=== PATIENT | female | born 1995 | race Caucasian/White ===

== ENCOUNTER 2020-02-22 11:09 | Outpatient (CLI) | payer OTHER, SELFPAY ==
[2020-02-22 12:50] LABS: Hematocrit 34.4 % (37.0-47.0); Hemoglobin 11.2 g/dL (12.0-15.0)
[2020-02-22 13:03] LABS: Alanine Aminotransferase 19 U/L (4-35); Albumin Level 3.7 g/dL (3.5-5.1); Alkaline Phosphatase 124 U/L (38-126); Aspartate Amino Transferase 19 U/L (14-36); Bilirubin,Total 0.2 mg/dL (0.2-1.3); Blood Urea Nitrogen 5 mg/dL (7-17); Calcium 8.9 mg/dL (8.4-10.2); Carbon Dioxide 21 mmol/L (22-30); Chloride 106 mmol/L (98-107); Estimated Glomerular Filt Rate > 60; Glucose 96 mg/dL (65-105); Glucose 1 Hour PP 50gm Dose 96 mg/dL; Potassium 3.7 mmol/L (3.4-5.0); Sodium 133 mmol/L (137-145)
[2020-02-22 13:43] LABS: HIV 1/2 Ab P24 Ag Result Negative (Negative)
--- NOTE | 2020-04-11 12:02 | PC.NURSE ---
1045 Let patient go home after BPP (ONLY) 06/14...called office to verify no NST.
== END 2020-02-22 11:10 | disposition home or self-care (01) ==
PROVIDERS: PCP Emergency Medicine; Visit Provider Obstetrics & Gynecology
DX: O13.9 Gestational [pregnancy-induced] hypertension without significant proteinuria, unspecified trimester (principal); Z3A.00 Weeks of gestation of pregnancy not specified
CPT/HCPCS: 36415; 76819; 80053; 82947; 85014; 85018; 86703; G0432

== ENCOUNTER 2020-04-16 10:08 | Outpatient (RCR) | payer OTHER, SELFPAY ==
[2020-03-21 13:08] VITALS: BP 126/67; PULSE 86
[2020-03-25 14:20] VITALS: BP 133/65; PULSE 89
[2020-03-28 09:10] VITALS: BP 127/83; PULSE 92
[2020-04-04 12:18] VITALS: BP 137/72; PULSE 90
[2020-04-08 10:40] VITALS: BP 127/69; PULSE 83
[2020-04-14 11:01] VITALS: BP 139/82; PULSE 140
--- NOTE | ~2020-04-16 | US_ITS ---
CORRECTED REPORT Charges & report moved from [id number] to [id number]. 04/15/20 sef EXAMINATION: US OB BPP wo non-stress DATE: 04/11/2020 11:09 INDICATION: Gestational hypertension. Third trimester. TECHNIQUE: Real-time pelvic ultrasound was performed. COMPARISON: Ultrasound 04/04/2020 FINDINGS: There is a single living fetus in vertex presentation. The placenta is anterior. heart rate is 154 beats per minute (bpm). Biophysical profile performed by the technologist: breathing (30 sec sustained breathing in 30 minutes): 2 out of 2 movement (3 gross body movements in 30 minutes): 2 out of 2 tone (one episode of udbihcm-xblfsjheu-pajwzdn limb movement): 2 out of 2 Amniotic fluid pocket (2 cm): 2 out of 2 Total score: 8 out of 8 IMPRESSION: 1. Single living fetus in vertex presentation. 2. Biophysical profile 8 out of 8. Reviewed, dictated and finalized at location A. REJI
--- NOTE | ~2020-04-16 | US_ITS ---
EXAMINATION: US OB BPP wo non-stress DATE: 03/28/2020 09:02 INDICATION: Gestational hypertension TECHNIQUE: Real-time pelvic ultrasound was performed. The interpreting radiologist was not present fo r the study. COMPARISON: 03/21/2020 FINDINGS: There is a single living fetus in vertex presentation. The placenta is anterior. heart rate is 139 beats per minute (bpm). Biophysical profile performed by the technologist: breathing (30 sec sustained breathing in 30 minutes): 2 out of 2 movement (3 gross body movements in 30 minutes): 2 out of 2 tone (one episode of gollczg-iaixldxwx-meddgkq limb movement): 2 out of 2 Amniotic fluid pocket (2 cm): 2 out of 2 Total score: 8 out of 8 IMPRESSION: 1. Single living fetus in vertex presentation with heart rate of 139 bpm. 2. Biophysical profile 8 out of 8. Reviewed, dictated and finalized at location A.
--- NOTE | ~2020-04-16 | US_ITS ---
EXAMINATION: US OB limited w BPP DATE: 03/21/2020 13:01 INDICATION: Hypertension in . Third trimester. TECHNIQUE: Real-time pelvic ultrasound was performed. COMPARISON: Ultrasound 04/10/2019 FINDINGS: There is a single living fetus in vertex presentation. The placenta is anterior. heart rate is 146 beats per minute (bpm). The amniotic fluid index is 16.5 cm, which is normal. Biophysical profile performed by the technologist: breathing (30 sec sustained breathing in 30 minutes): 2 out of 2 movement (3 gross body movements in 30 minutes): 2 out of 2 tone (one episode of gxcrvkr-qiuccdqia-jfvwfwt limb movement): 2 out of 2 Amniotic fluid pocket (2 cm): 2 out of 2 Total score: 8 out of 8 IMPRESSION: 1. Single living fetus in vertex presentation. 2. Biophysical profile 8 out of 8. Reviewed, dictated and finalized at location A.
--- NOTE | ~2020-04-16 | US_ITS ---
EXAMINATION: US OB BPP wo non-stress DATE: 04/04/2020 13:05 INDICATION: Gestational hypertension. Third trimester. TECHNIQUE: Real-time pelvic ultrasound was performed. COMPARISON: Ultrasound 03/28/2020 FINDINGS: There is a single living fetus in vertex presentation. The placenta is anterior. heart rate is 157 beats per minute (bpm). Biophysical profile performed by the technologist: breathing (30 sec sustained breathing in 30 minutes): 2 out of 2 movement (3 gross body movements in 30 minutes): 2 out of 2 tone (one episode of skjjccx-blawlqiax-kinqnro limb movement): 2 out of 2 Amniotic fluid pocket (2 cm): 2 out of 2 Total score: 8 out of 8 IMPRESSION: 1. Single living fetus in vertex presentation. 2. Biophysical profile 8 out of 8. Reviewed, dictated and finalized at location A.
[2020-04-16 10:45] LABS: Basophils Percent Auto 0.3 % (0.2-1.2); Eosinophils Absolute Auto 0.2 K/mm3 (0-0.3); Eosinophils Percent Auto 1.9 % (0-4.4); Hematocrit 31.7 % (37.0-47.0); Hemoglobin 10.4 g/dL (12.0-15.0); Immature Granulocyte Absolute 0.06 K/mm3 (0.00-0.031); Immature Granulocyte Percent A 0.8 % (0-0.5); Lymphocytes Absolute Auto 1.32 K/mm3 (0.9-3.2); Lymphocytes Percent Auto 16.6 % (18.3-44.2); Mean Corpuscular HGB Conc 32.8 g/dl (32-36); Mean Corpuscular Hemoglobin 27.2 pg (26-34); Mean Corpuscular Volume 82.8 fl (80-100); Mean Platelet Volume 11.5 fl (7.4-10.4); Monocytes Absolute Auto 0.5 K/mm3 (0.1-0.6); Monocytes Percent Auto 6.1 % (2.6-8.5); Neutrophils Absolute Auto 5.9 K/mm3 (1.3-6.7); Neutrophils Percent Auto 74.3 % (45.5-73.1); Platelet Count Result 185 k/mm3 (150-375); Red Blood Count 3.83 M/mm3 (4.2-5.4); Red Cell Distribution Width 13.7 % (11.5-14.5); White Blood Count 7.9 K/mm3 (4.5-10.0)
[2020-04-16 10:56] LABS: Alanine Aminotransferase 23 U/L (4-35); Albumin Level 3.6 g/dL (3.5-5.1); Alkaline Phosphatase 148 U/L (38-126); Aspartate Amino Transferase 21 U/L (14-36); Bilirubin,Total 0.2 mg/dL (0.2-1.3); Blood Urea Nitrogen 6 mg/dL (7-17); Calcium 8.7 mg/dL (8.4-10.2); Carbon Dioxide 23 mmol/L (22-30); Chloride 105 mmol/L (98-107); Estimated Glomerular Filt Rate > 60; Glucose 85 mg/dL (65-105); Potassium 3.8 mmol/L (3.4-5.0); Sodium 135 mmol/L (137-145); Uric Acid 3.7 mg/dL (2.5-7.5)
[2020-04-16 11:20] VITALS: BP 123/73; PULSE 90
== END 2020-04-21 08:13 | disposition home or self-care (01) ==
LOC: ANHOBOP 10:08
PROVIDERS: PCP Emergency Medicine; Visit Provider Obstetrics & Gynecology
DX: O16.3 Unspecified maternal hypertension, third trimester (principal); Z3A.34 34 weeks gestation of pregnancy; Z3A.35 35 weeks gestation of pregnancy; Z3A.36 36 weeks gestation of pregnancy; Z3A.37 37 weeks gestation of pregnancy; Z3A.38 38 weeks gestation of pregnancy
CPT/HCPCS: 36415; 59025; 76815; 76819; 80053; 84550; 85025

== ENCOUNTER 2020-04-17 19:00 | Inpatient (IN) | payer OTHER, SELFPAY ==
[2020-04-17] VITALS (10 sets, daily range): BP systolic 109–161; BP diastolic 55–90; PULSE 84–99; TEMP 36.6
--- NOTE | 2020-04-17 19:56 | LDADM ---
This patient, Patti Garcia, was admitted to Labor/Delivery/Recovery 109 on 04/17/20 at 19:00. Plans for labor, pain management and were discussed with patient. Patient/family oriented to hospital policies and general routines including ID bracelet, bed and alarms, visiting hours, pain management, procedures, bathroom and other care routines, personal items, smoking policy, room service/diet and guest tray routines, infant security routines, and visiting hours. Patient/Family are encouraged to report perceived risks to care and to ask questions if they do not understand what they are told or what they should do. See OBIX for further documentation.
[2020-04-17 19:57] LABS: Basophils Percent Auto 0.2 % (0.2-1.2); Eosinophils Absolute Auto 0.1 K/mm3 (0-0.3); Eosinophils Percent Auto 1.5 % (0-4.4); Hematocrit 32.4 % (37.0-47.0); Hemoglobin 10.5 g/dL (12.0-15.0); Immature Granulocyte Absolute 0.08 K/mm3 (0.00-0.031); Immature Granulocyte Percent A 0.9 % (0-0.5); Lymphocytes Absolute Auto 1.62 K/mm3 (0.9-3.2); Lymphocytes Percent Auto 18.7 % (18.3-44.2); Mean Corpuscular HGB Conc 32.4 g/dl (32-36); Mean Corpuscular Volume 83.3 fl (80-100); Monocytes Absolute Auto 0.5 K/mm3 (0.1-0.6); Monocytes Percent Auto 6.1 % (2.6-8.5); Neutrophils Absolute Auto 6.3 K/mm3 (1.3-6.7); Neutrophils Percent Auto 72.6 % (45.5-73.1); Platelet Count Result 210 k/mm3 (150-375); Red Blood Count 3.89 M/mm3 (4.2-5.4); Red Cell Distribution Width 13.8 % (11.5-14.5); White Blood Count 8.7 K/mm3 (4.5-10.0)
[2020-04-17] MEDS: DINOPROSTONE 10 MG VAG INSERT VAGINAL (19:58)
[2020-04-17 20:09] LABS: Alanine Aminotransferase 23 U/L (4-35); Albumin Level 3.7 g/dL (3.5-5.1); Alkaline Phosphatase 151 U/L (38-126); Aspartate Amino Transferase 22 U/L (14-36); Bilirubin,Total < 0.1 mg/dL (0.2-1.3); Blood Urea Nitrogen 10 mg/dL (7-17); Calcium 8.9 mg/dL (8.4-10.2); Carbon Dioxide 21 mmol/L (22-30); Chloride 107 mmol/L (98-107); Estimated Glomerular Filt Rate > 60; Glucose 102 mg/dL (65-105); Potassium 3.5 mmol/L (3.4-5.0); Sodium 132 mmol/L (137-145); Uric Acid 4.2 mg/dL (2.5-7.5)
[2020-04-18] VITALS (133 sets, daily range): BP systolic 74–138; BP diastolic 42–88; PULSE 69–111; RESP 16; TEMP 36.2–36.9; O2SAT 98–100
[2020-04-18] MEDS: LACTATED RINGERS 1,000 ML 125 ML IV CONT ×2 (05:22→06:49)
[2020-04-18] MEDS: OXYTOCIN 30 UNITS/NS 500 ML 30 UNITS/500 ML BAG IV CONT (05:23)
--- NOTE | 2020-04-18 08:07 | WPDANESEPPF ---
Anes - Initial Pre Proc Eval Date/Time: 04/18/20 08:07 Surgeon: Garret Kelley MD Pre Op Diagnosis: IOL Patient Data Age: 25 Gender: F Height: 5 ft 9 in Weight: Last Vital Signs Temp 36.6 C 04/18/20 06:30 Pulse 100 04/18/20 08:06 BP 113/42 L 04/18/20 08:06 Pulse Ox 100 04/18/20 08:05 Allergies Allergy/AdvReac Type Severity Reaction Status Date / Time No Known Allergies Allergy Verified 03/21/20 11:37 Home Medications Medication Instructions Recorded Confirmed Type PNV cmb#95-ferrous fumarate-FA 1 tablet PO DAILY 03/21/20 04/18/20 History [] aspirin [Aspirin Low Dose] 81 mg PO DAILY 03/21/20 04/18/20 History folic acid 1 mg PO DAILY 03/21/20 04/18/20 History Laboratory Tests 04/17/20 04/17/20 04/17/20 19:49 19:49 19:49 WBC 8.7 K/mm3 K/mm3 (4.5-10.0) RBC 3.89 M/mm3 L M/mm3 (4.2-5.4) Hgb 10.5 g/dL L g/dL (12.0-15.0) Hct 32.4 % L % (37.0-47.0) MCV 83.3 fl fl (80-100) MCH 27.0 pg pg (26-34) MCHC 32.4 g/dl g/dl (32-36) RDW 13.8 % % (11.5-14.5) Plt Count 210 k/mm3 k/mm3 (150-375) MPV 12.0 fl H fl (7.4-10.4) Immature Gran % (Auto) 0.9 % H % (0-0.5) Neut % (Auto) 72.6 % % (45.5-73.1) Lymph % (Auto) 18.7 % % (18.3-44.2) Camp % (Auto) 6.1 % % (2.6-8.5) Eos % (Auto) 1.5 % % (0-4.4) Baso % (Auto) 0.2 % % (0.2-1.2) Lymph # (Auto) 1.62 K/mm3 K/mm3 (0.9-3.2) Camp # (Auto) 0.5 K/mm3 K/mm3 (0.1-0.6) Eos # (Auto) 0.1 K/mm3 K/mm3 (0-0.3) Baso # (Auto) 0.0 K/mm3 K/mm3 (0.0-0.1) Abs Immat Gran (auto) 0.08 K/mm3 H K/mm3 (0.00-0.031) Absolute Neuts (auto) 6.3 K/mm3 K/mm3 (1.3-6.7) Absolute Nucleated RBC 0.0 K/mm3 K/mm3 (0.0-0.012) Nucleated RBC % 0.0 % % (0.0-0.2) Sodium Potassium Chloride Carbon Dioxide BUN Creatinine Estim Creat Clear Calc Estimated GFR Glucose Uric Acid Cancelled Calcium Total Bilirubin AST ALT Alkaline Phosphatase Total Protein Albumin RPR Pending Blood Type Antibody Screen 04/17/20 04/17/20 19:49 19:49 WBC RBC Hgb Hct MCV MCH MCHC RDW Plt Count MPV Immature Gran % (Auto) Neut % (Auto) Lymph % (Auto) Camp % (Auto) Eos % (Auto) Baso % (Auto) Lymph # (Auto) Camp # (Auto) Eos # (Auto) Baso # (Auto) Abs Immat Gran (auto) Absolute Neuts (auto) Absolute Nucleated RBC Nucleated RBC % Sodium 132 mmol/L L mmol/L (137-145) Potassium 3.5 mmol/L mmol/L (3.4-5.0) Chloride 107 mmol/L mmol/L (98-107) Carbon Dioxide 21 mmol/L L mmol/L (22-30) BUN 10 mg/dL mg/dL (7-17) Creatinine 0.50 mg/dL L mg/dL (0.7-1.0) Estim Creat Clear Calc Not Reportable Estimated GFR > 60 (59 - ) Glucose 102 mg/dL mg/dL (65-105) Uric Acid 4.2 mg/dL mg/dL (2.5-7.5) Calcium 8.9 mg/dL mg/dL (8.4-10.2) Total Bilirubin < 0.1 mg/dL L mg/dL (0.2-1.3) AST 22 U/L U/L (14-36) ALT 23 U/L U/L (4-35) Alkaline Phosphatase 151 U/L H U/L (38-126) Total Protein 7.0 g/dL g/dL (6.3-8.2) Albumin 3.7 g/dL g/dL (3.5-5.1) RPR Blood Type O Positive Antibody Screen Negative Patient hx anesthesia problems: none Family hx anesthesia problems: none [facility] Family History Family History (Reviewed 04/07
--- NOTE | 2020-04-18 08:23 | PM.OBPRVD ---
OB - Delivery Note Procedure Delivery date: 04/18/20 Route of delivery: Episiotomy description: None Laceration description: None Specimen: No Estimated blood loss (mL): 300 Anesthesia type: Epidural Disposition: floor Narrative: Patient prepped and draped in usual manner for this procedure. Maternal expulsive efforts readily delivered vertex with nuchal cord noted and readily reduced. The rest of baby was delivered without difficulty. Cord clamped and cut and placenta delivered spontaneously. Cervix vagina vulva were inspected no lacerations or tears. Uterus well contracted no significant bleeding. At this point the procedure was considered terminated. [place] Baby Weeks of gestation at delivery: 39 Infant gender: Male Weight (pounds): 6 Weight (ounces): 12 score one minute: 8 score five minutes: 9
--- NOTE | 2020-04-18 08:24 | WPDHPUPDATE1 ---
History and Physical Update Update Date/Time: 04/18/20 08:24 History and Physical has been reviewed, including an updated exam of the patient. There are NO changes in the patient's condition. Risks, benefits, and alternatives have been discussed and questions answered. Patient agrees to proceed with procedure.
--- NOTE | 2020-04-18 08:25 | WPDOBADMIT ---
Obstetrics - Admit Note Admission Note: record reviewed. No pertinent additions to the history and/or any subsequent changes in the physical findings that are not consistent with the expected course of the were found. Additions to the history and/or subsequent changes in the physical findings follow. None.
[2020-04-18] MEDS: ONDANSETRON INJ 4 MG/2 ML VIAL IV PUSH (08:58)
[2020-04-18 09:31] LABS: Rapid Plasma Reagin Non-Reactive (NonReactive)
[2020-04-18] MEDS: SODIUM CHLORIDE 0.9% IV 300 ML 600 ML I-UTERINE (09:50)
--- NOTE | 2020-04-18 13:26 | P.PCNOB_ITS ---
OB - Delivery Note Procedure events: Induced HTN Route of delivery: Episiotomy description: None Laceration description: None Specimen: Yes (placenta due to HTN) Estimated blood loss (mL): 300 Anesthesia type: Epidural Narrative: Patient prepped and draped in usual manner for this procedure. Maternal expulsive efforts readily delivered vertex with nuchal cord noted and clamped and cut. Rest of baby was delivered cord placenta delivered spontaneously. Uterus was well contracted. Cervix vagina and vulva were i nspected no lacerations or tears. This point the procedure was considered terminated immediate postop condition of mother and baby were both excellent. [place] Baby Weeks of gestation at delivery: 39 gender: Female Weight (pounds): 6 Weight (ounces): 13 score one minute: 9 score five minutes: 9
[2020-04-18] MEDS: OXYTOCIN 30 UNITS/NS 500 ML 30 UNITS/500 ML BAG 125 UNITS IV CONT (13:45)
[2020-04-18] MEDS: IBUPROFEN 600 MG TABLET PO ×2 (15:59→22:08)
[2020-04-18] MEDS: MULTIVIT/MIN/PREN/FOL AC/IRON TABLET 1 TAB PO (17:05)
[2020-04-19] MEDS: IBUPROFEN 600 MG TABLET PO ×3 (04:10→18:42)
[2020-04-19 05:01] LABS: Hematocrit 31.4 % (37.0-47.0); Hemoglobin 9.9 g/dL (12.0-15.0)
[2020-04-19] MEDS: DOCUSATE SODIUM 100 MG CAPSULE PO ×2 (08:37→16:05)
[2020-04-19] MEDS: MULTIVIT/MIN/PREN/FOL AC/IRON TABLET 1 TAB PO (08:37)
[2020-04-19] MEDS: POLYSACCHARIDE IRON COMPLEX 150 MG CAPSULE PO ×2 (08:37→16:05)
--- NOTE | 2020-04-19 09:07 | P.PCNOB_ITS ---
OB - Delivery Note Procedure events: Induced HTN Laceration description: None Estimated blood loss (mL): 300 Anesthesia type: Epidural [place] Baby Weeks of gestation at delivery: 39 Infant gender: Female Weight (pounds): 6 Weight (ounces): 13 score one minute: 9 score five minutes: 9
--- NOTE | 2020-04-19 09:08 | PM.OBDSVD ---
OB - DS: Summary OB Procedures : None OB Procedures Intrapartum: Spontaneous Vag Delivery OB Procedures: : None Time Spent with Patient Time attestation: Total time spent providing and/or coordinating discharge services: DS: Data Data Completed and Pending Labs on day of discharge: Labs from last 24 hours 04/19/20 04/17/20 04:16 19:49 Hgb 9.9 L Hct 31.4 L RPR Non-reactive Discharge Plan Discharge Discharging Clinician: Garret Kelley Patient Disposition: Home, Self-Care Activity: as tolerated Diet: as tolerated Patient Instructions: Antibiotic Form Stand Alone Forms: General Discharge Information Follow-up/Referrals: Garret Kelley MD [Physician] - 3 Weeks Discharge Medications: New hydrocodone-acetaminophen 5-325 mg Tablet 1 tab PO Q3H PRN (Reason: Moderate Pain (4-6)) Qty: 12 RF: 0 ibuprofen 600 mg Tablet 600 mg PO Q6H PRN (Reason: Cramping) Qty: 30 RF: 0 Continued PNV cmb#95-ferrous fumarate-FA [] 28 mg iron- 800 mcg Tablet 1 tablet PO DAILY RF: 0 Discontinued aspirin [Aspirin Low Dose] 81 mg Tablet,Delayed Release (Dr/Ec) 81 mg PO DAILY RF: 0 folic acid 1 mg Tablet 1 mg PO DAILY RF: 0 Date of admission: 04/17/20 19:00 Primary Care Provider: PHYSICIAN NOT ON STAFF,NONSTAFF Admitting Provider: Graret Kelley Attending physician on admission: Garret Kelley
[2020-04-19 09:55] VITALS: BP 126/66; PULSE 77; RESP 18; TEMP 36.5
--- NOTE | 2020-04-19 11:31 | WPDANLDPN2 ---
Anes-Prog Note L&D Date/Time: 04/19/20 11:31 Comfortable throughout: labor and delivery Neuraxial method: epidural Epidural/Spinal procedure site: clean & non-tender Neuro status: Neuro function grossly intact. Cardiovascular status: normal Respiratory status: normal Airway patency: baseline Mental status: baseline Post-Op hydration status: normal Vital Signs: Last Vital Signs Temp 36.5 C 04/19/20 09:55 Pulse 77 04/19/20 09:55 Resp 18 04/19/20 09:55 BP 126/66 04/19/20 09:55 Pulse Ox 100 04/18/20 19:10 I/O: Intake & Output 04/18/20 04/19/20 04/19/20 23:59 07:59 15:59 Intake Total 500 240 Balance 500 240 Post-procedural complaints: none Patient feedback: Patient satisfied with anesthetic care.
--- NOTE | 2020-04-19 19:00 | PC.NURSE ---
Patient viewed the discharge video Mother & Baby Care, The First Two Weeks . Patient was given the opportunity and encouraged to ask questions. Patient verbalized understanding of information shared and has been given the mother/baby guide for home reference.
[2020-04-19 19:15] VITALS: BP 137/85; PULSE 87; RESP 18; TEMP 37.1; O2SAT 100
[2020-04-20] MEDS: IBUPROFEN 600 MG TABLET PO ×2 (01:27→07:25)
[2020-04-20 07:25] VITALS: BP 127/75; PULSE 78; RESP 18; TEMP 36.7
[2020-04-20] MEDS: MULTIVIT/MIN/PREN/FOL AC/IRON TABLET 1 TAB PO (07:25)
[2020-04-20] MEDS: POLYSACCHARIDE IRON COMPLEX 150 MG CAPSULE PO (07:25)
[2020-04-20] MEDS: DOCUSATE SODIUM 100 MG CAPSULE PO (07:25)
[2020-04-23 10:47] VITALS: BP 129/72; PULSE 80; RESP 20; TEMP 37.2; O2SAT 97
--- NOTE | 2020-04-28 11:24 | PM.OBDSVD ---
DS: Admitting Diagnosis Admitting Diagnosis Admitting Diagnosis: Encounter for supervision of normal , unspecified, third trimester OB - DS: Summary OB Procedures : None OB Procedures Intrapartum: Spontaneous Vag Delivery OB Procedures: : None Time Spent with Patient Time attestation: Total time spent providing and/or coordinating discharge services: Discharge Plan Discharge Consulting providers: ; Jer Perry Discharging Clinician: Garret Kelley Patient Disposition: Home, Self-Care Activity: as tolerated Diet: as tolerated Discharge Instructions: Education: Mom and Baby Guide Given to: Mother Follow-Up: Call your delivering provider's office for an appointment to be seen. Mom and baby should come to the [facility] for the follow-up appointment. Appointment Date/Time: April 23, 2020 at 11:00 am What to expect at your follow-up visit: Physical Assessment Call [phone] if you are unable to keep your appointment time. BREAST CARE: 1. Wear a snug supportive bra. 2. For engorgement discomfort: Breast Feeding: A. Apply warm moist washcloths B. Express milk as needed to relieve engorgement C. Wear loose clothing 3. For sore nipples: A. Identify correct latch-on B. Apply warm moist washcloths before and after nursing C. Air dry nipples after nursing D. May apply Lansinoh cream to nipples PERINEAL CARE: 1. Until bleeding stops, use your aubrie bottle after urinating 2. Change your pad frequently throughout the day 3. You may take sitz baths several times a day (fill your bathtub with warm water and soak for 20 minutes.) Do NOT bathe in the water 4. No tub baths until seen by your physician - You may shower ACTIVITY: 1. Rest as much as possible. 2. Do not exercise or lift anything heavier than your baby (such as laundry or other children.) 3. Avoid stairs or driving as much as possible. 4. Do not put anything into the vagina. No douching, tampons, or sexual activity until seen by physician. NOTIFY PHYSICIAN IF YOU HAVE ANY QUESTIONS OR IF ANY OF THE FOLLOWING SYMPTOMS OCCUR: 1. If your perineum becomes red, swollen, or more painful than what you have experienced in the hospital. 2. If your vaginal bleeding becomes foul smelling. 3. If your vaginal bleeding becomes more heavy than a period or if your bleeding changes from pink to bright red. However, you may pass an occasional walnut-sized clot once or twice for the first week . 4. If you experience a sharp, shooting pain in you calves. 5. If you discover a hard, reddened area on your breast or if you experience flu-like symptoms. DIET: 1. Eat regular, well-balanced meals. 2. Drink plenty of fluids daily. If , drink to thirst. Stand Alone Forms: General Discharge Information Follow-up/Referrals: Garret Kelley MD [Physician] - 3 Weeks Discharge Medications: New hydrocodone-acetaminophen 5-325 mg Tablet 1 tab PO Q3H PRN (Reason: Moderate Pain (4-6)) Qty: 12 RF: 0 ibuprofen 600 mg Tablet 600 mg PO Q6H PRN (Reason: Cramping) Qty: 30 RF: 0 Continued PNV cmb#95-ferrous fumarate-FA [] 28 mg iron- 800 mcg Tablet 1 tablet PO DAILY RF: 0 Discontinued aspirin [Aspirin Low Dose] 81 mg Tablet,Delayed Release (Dr/Ec) 81 mg PO DAILY RF: 0 folic acid 1 mg Tablet 1 mg PO DAILY RF: 0 Date of admission: 04/17/20 19:00 Primary Care Provider: PHYSICIAN NOT ON STAFF,NONSTAFF Admitting Provider: Garret Kelley Discharge Date/Time: 04/20/20 11:15 Attending physician on admission: Garret Kelley
== END 2020-04-20 11:15 | disposition home or self-care (01) | DRG 560 ==
LOC: ANHLDR 04-18 16:33 → ANHOB2 04-18 16:38
PROVIDERS: Admitting Provider Obstetrics & Gynecology; Visit Provider Obstetrics & Gynecology
DX: O13.4 Gestational [pregnancy-induced] hypertension without significant proteinuria, complicating childbirth (principal); Z3A.38 38 weeks gestation of pregnancy; Z37.0 Single live birth; O99.214 Obesity complicating childbirth; E66.01 Morbid (severe) obesity due to excess calories
CPT/HCPCS: 36415; 80053; 84550; 85014; 85018; 85025; 86592; 86850; 86900; 86901; A9270; J2405; J2590; J2795; J7030; J7120